=== PATIENT | female | born 2000 | race Caucasian/White ===

== ENCOUNTER 2021-08-29 18:21 | Observation (INO) | payer BC, SELFPAY ==
--- NOTE | ~2021-08-29 | CT_ITS ---
EXAMINATION: CT abdomen pelvis wo con DATE: 08/29/2021 23:52 INDICATION: Abnormal liver function tests TECHNIQUE: Computed tomography (CT) of the abdomen and pelvis was performed without intravenous contr ast. The dose-length product was 306.26 mGy-cm. Automated exposure control and iterative reconstructi on technique were employed. COMPARISON: None. FINDINGS: Lung bases are unremarkable. Heart size normal. No significant pleural or pericardial effus ion. No significant vascular abnormality. No lymphadenopathy. Small amount of free fluid in the pelvi s, likely physiologic. The liver, spleen, pancreas, adrenal glands and kidneys are unremarkable. Gallbladder is present. Non obstructive bowel gas pattern. No free air. Gallbladder is present. IMPRESSION: 1. No acute abdominal abnormality. No findings to account for abnormal liver function tests. Reviewed, dictated and finalized at location A. D TECHNICIAN IMPRESSION: 1. No acute abdominal abnormality. No findings to account for abnormal liver fu nction tests.
[2021-08-29 18:43] VITALS: BP 114/64; PULSE 139; RESP 15; TEMP 37.5; O2SAT 100
[2021-08-29 18:54] LABS: Basophils Percent Auto 0.6 % (0.2-1.2); Hematocrit 42.1 % (37.0-47.0); Hemoglobin 14.7 g/dL (12.0-15.0); Immature Granulocyte Absolute 0.02 K/mm3 (0.00-0.031); Immature Granulocyte Percent A 0.3 % (0-0.5); Lymphocytes Absolute Auto 1.69 K/mm3 (0.9-3.2); Lymphocytes Percent Auto 27.4 % (18.3-44.2); Mean Corpuscular HGB Conc 34.9 g/dl (32-36); Mean Corpuscular Hemoglobin 30.1 pg (26-34); Mean Corpuscular Volume 86.1 fl (80-100); Mean Platelet Volume 9.9 fl (7.4-10.4); Monocytes Absolute Auto 0.5 K/mm3 (0.1-0.6); Monocytes Percent Auto 8.3 % (2.6-8.5); Neutrophils Absolute Auto 3.9 K/mm3 (1.3-6.7); Neutrophils Percent Auto 63.4 % (45.5-73.1); Platelet Count Result 197 k/mm3 (150-375); Red Blood Count 4.89 M/mm3 (4.2-5.4); Red Cell Distribution Width 12.9 % (11.5-14.5); White Blood Count 6.2 K/mm3 (4.5-10.0)
[2021-08-29 19:06] LABS: Alanine Aminotransferase 87 U/L (4-35); Albumin Level 4.5 g/dL (3.5-5.1); Alkaline Phosphatase 151 U/L (38-126); Anion Gap 10 mmol/L (8-16); Aspartate Amino Transferase 130 U/L (14-36); Bilirubin,Total 1.2 mg/dL (0.2-1.3); Blood Urea Nitrogen 12 mg/dL (7-17); Calcium 9.1 mg/dL (8.4-10.2); Carbon Dioxide 26 mmol/L (22-30); Chloride 99 mmol/L (98-107); Estimated CRCL calculation 88 ml/min; Estimated Glomerular Filt Rate > 60; Glucose 125 mg/dL (65-110); Lipase 109 U/L (23-300); Potassium 3.8 mmol/L (3.4-5.0); Sodium 135 mmol/L (137-145)
[2021-08-29 19:10] LABS: Add Urine Microscopic? YES; Appearance Urine Clear (Clear); Bilirubin Urine Negative (Negative); Blood Urine Negative (Negative); Color Urine Amber (Yellow); Glucose Urine UA Negative (Negative); Ketones Urine Negative (Negative); Leukocyte Esterase Ur Negative LEU/UL (Negative); Mucus Urine Rare /lpf; Nitrate Urine Negative (Negative); Protein Urine 2+ mg/dL (Negative); RBC Urine 0-2 /hpf (0-2); Specific Grav Ur 1.024 (1.001-1.035); Squamous Epithelial Cell Urine Occasional /hpf (Few); WBC Urine 0-3 /hpf
[2021-08-29 19:41] VITALS: BP 118/70; PULSE 127; RESP 18; TEMP 38.6; O2SAT 100
[2021-08-29 20:08] VITALS: BP 112/70; PULSE 117
[2021-08-29 20:09] VITALS: BP 112/78; PULSE 121
[2021-08-29 20:11] VITALS: BP 108/76; PULSE 135
[2021-08-29] MEDS: LACTATED RINGERS 1,000 ML 999 ML IV CONT (21:40)
[2021-08-29] MEDS: ONDANSETRON INJ 4 MG/2 ML VIAL IV PUSH (21:42)
--- NOTE | 2021-08-29 21:48 | ED.NAVMDI ---
HPI - Nausea/Vomiting/Diarrhea General Chief complaint: Nausea/Vomiting/Diarrhea Stated complaint: Lethergy, Vomiting, Fever Time Seen by Provider: 08/29/21 20:10 Source: patient Mode of arrival: ambulatory Limitations: no limitations History of Present Illness HPI Narrative: 21-year-old female Usually healthy Here for nausea and vomiting Patient complains of a 2-day history of essentially unchecked nausea and vomiting, has not been able to keep anything down, even the Gatorade that she is sipping here in the ED is coming right back up She has had a low-grade fever at home She does not have abdominal pain and she does not have diarrhea She denies pain or burning with urination and no hematuria She is very tired and fatigued She does not believe that she would be Related Data Home Medications Medication Instructions Recorded Confirmed norgestimate-ethinyl estradiol tablet 08/29/21 Allergies Allergy/AdvReac Type Severity Reaction Status Date / Time No Known Allergies Allergy Verified 08/29/21 18:42 Review of Systems Review of Systems: All systems reviewed & are unremarkable except as noted in HPI and below Constitutional: Constitutional: Reports no additional constitutional complaints, Denies chills, Reports fatigue, Reports fever(s), Denies headache(s) and Reports weakness Eyes: Eyes: Reports no additional eye complaints and Denies change in vision ENT: Denies headache(s) and Denies sore throat Cardiovascular: Cardiovascular: Denies chest pain and Denies dyspnea Respiratory: Respiratory: Denies cough and Denies dyspnea Gastrointestinal: Gastrointestinal: Denies abdominal pain, Denies bloating, Denies constipation, Denies diarrhea and Reports vomiting Genitourinary: Genitourinary: Denies urinary frequency and Denies dysuria Musculoskeletal: Musculoskeletal: Reports myalgias, Denies deformity, Denies arthralgias, Denies joint swelling and Denies numbness Integumentary/Breasts: Skin/Breast: Denies rash and Denies wounds Neurologic: Denies headache(s), Denies focal weakness and Denies numbness Psychiatric: Psychiatric: Reports no additional psychiatric complaints Endocrine: Endocrine: Reports no additional endocrine complaints Hematologic/Lymphatic: Hematologic/Lymphatic: Reports no additional hematologic/lymphatic complaints Allergic/Immunologic: Allergic/Immunologic: Reports no additional allergic/immunologic complaints Exam Const: General: cooperative, healthy appearing, no acute distress and alert Orientation/consciousness: patient oriented x3 (alert) [facility]: Head: normal to inspection, normocephalic and atraumatic Ears: external ears normal General nose exam: no epistaxis Mouth: Yes Normal oral and palatal mucosa present and Yes moist mucous membranes Eyes: Conjunctivae: conjunctivae normal EOM: EOMs intact bilaterally Neck: Neck: supple and no JVD Resp: Effort & Inspection: normal respiratory effort and not labored Auscultation: clear to auscultation bilaterally and other (BS =) Cardio: Rate: regular rate and tachycardic Rhythm: regular rhythm Heart sounds: no murmurs GI: GI Palp: Yes Soft to palpation, No Tenderness to palpation present (GI), No Guarding due to palpation present (GI) and No Rebound tenderness present : Other: Mild right CVA tenderness Skin: General skin exam: normal color and no rashes or lesions noted Neuro: General: patient oriented x3 (alert) and moves all extremities Speech: normal speech Extrem: General: normal to inspection and no pedal edema Psych: Affect: normal affect Course Course Emergency Course: Reviewed results with patient and family and discussed with hospitalist for obs Vital Signs Vital signs: Vital Signs Temperature 37.5 C 08/29/21 18:43 Pulse Rate 139 H 08/29/21 18:43 Respiratory Rate 15 08/29/21 18:43 Blood Pressure 114/64 08/29/21 18:43 Pulse Oximetry 100 08/29/21 18:43 Temperature 3
[2021-08-29 22:24] LABS: Monoscreen Positive (Negative); Positive Monotest Control Positive (Positive)
[2021-08-29 22:25] LABS: Negative Monotest Control Negative (Negative)
[2021-08-29 22:38] VITALS: BP 119/61; PULSE 108; RESP 18; TEMP 37.4; O2SAT 100
--- NOTE | 2021-08-29 23:34 | PM.IMHP ---
H&P: HPI History of Present Illness Date/Time: 08/29/21 23:34 Chief Complaint: Nausea and vomiting Narrative: This is a 21-year-old female with known significant past medical history presented to the emergency room due to nausea, vomiting for 3 days unable to keep anything down, denies any chills or rigors and had a fever just before coming to the emergency room, denies any sore throat or lymphadenopathies, no abdominal pain, no cough, no sputum production ,no abdominal pain, no diarrhea. Preliminary workup was significant for a positive Monospot test. A CT of abdomen and pelvis showed no acute abnormality chemistry panel was significant for slightly elevated liver enzymes and urinalysis with 2+ protein. Decision was made to admit the patient for further management ,evaluation and treatment. Review of Systems Review of Systems: Nausea ,vomiting, fever. Constitutional: Constitutional: Denies chills, Reports fever(s), Denies lethargy and Denies malaise Eyes: Eyes: Denies change in vision ENT: Denies dysphagia, Denies dizziness, Denies nasal congestion, Denies nasal discharge, Denies nasal obstruction, Denies neck pain, Denies odynophagia and Denies sore throat Cardiovascular: Cardiovascular: Denies chest pain, Denies chest pain with activity, Denies lightheadedness, Denies radiating jaw, neck or arm pain, Denies palpitations, Denies dyspnea on exertion and Denies orthopnea Respiratory: Respiratory: Denies change in phlegm color, Denies chest congestion, Denies cough, Denies excessive phlegm production, Denies dyspnea and Denies wheezing Gastrointestinal: Gastrointestinal: Denies abdominal pain, Denies dyspepsia, Denies heartburn, Denies diarrhea, Reports nausea and Reports vomiting Genitourinary: Genitourinary: Denies dysuria Musculoskeletal: Musculoskeletal: Denies arthralgias, Denies joint swelling, Denies neck pain and Denies stiffness Integumentary/Breasts: Skin/Breast: Denies rash Neurologic: Denies dizziness, Denies focal weakness and Denies Sensory deficit (Neuro) Psychiatric: Psychiatric: Reports no additional psychiatric complaints and Reports as per HPI Endocrine: Endocrine: Reports no additional endocrine complaints and Reports as per HPI Hematologic/Lymphatic: Hematologic/Lymphatic: Reports no additional hematologic/lymphatic complaints and Reports as per HPI Allergic/Immunologic: Allergic/Immunologic: Reports no additional allergic/immunologic complaints and Reports as per [facility] Social History Social History Smoking status: Never smoker Alcohol intake: current Drinks per week: 1 Substance use: never Spiritual care concerns: No Meds Home Medications and Allergies Home Medications Medication Instructions Recorded Confirmed Type norgestimate-ethinyl estradiol tablet 08/29/21 History ibuprofen 800 mg PO TID 08/30/21 08/30/21 History Allergies Allergy/AdvReac Type Severity Reaction Status Date / Time No Known Allergies Allergy Verified 08/29/21 18:42 Vital Signs Vital Signs - 24 hr 08/29/21 18:43 08/29/21 19:41 08/29/21 20:08 Temperature 99.5 F 101.4 F H Pulse Rate 139 H 127 H 117 H Respiratory Rate 15 18 Blood Pressure 114/64 118/70 112/70 Pulse Oximetry 100 100 08/29/21 20:09 08/29/21 20:11 08/29/21 22:38 Temperature 99.3 F Pulse Rate 121 H 135 H 108 H Respiratory Rate 18 Blood Pressure 112/78 108/76 119/61 Pulse Oximetry 100 Exam Narrative: Patient is sitting in [facility] Const: General: cooperative, comfortable, no acute distress, well developed, alert, awake and other (Well-appearing) Nutritional Appearance: average body habitus Orientation/consciousness: patient oriented x3 HENMT: Head: normal to inspection, normocephalic and atraumatic Ears: hearing grossly normal bilaterally General nose exam: Normal external nose present Face and sinus: normal facial exam Mouth: Yes Normal oral and palatal
[2021-08-30] VITALS (8 sets, daily range): BP systolic 104–120; BP diastolic 56–72; PULSE 89–111; RESP 16–22; TEMP 36.6–38.2; O2SAT 98–100; BMI 23.6
[2021-08-30] MEDS: LACTATED RINGERS 1,000 ML 150 ML IV CONT ×3 (02:24→17:18)
[2021-08-30] MEDS: FAMOTIDINE 20 MG/2 ML VIAL IV PUSH ×2 (08:12→20:11)
--- NOTE | 2021-08-30 09:42 | PM.IMPN ---
Progress Note: A&P Assessment and Plan (1) Mononucleosis: Code(s): B27.90 - Infectious mononucleosis, unspecified without complication Status: Acute Assessment and Plan: Supportive care Regular diet IV fluids CT of abdomen and pelvis--> no acute abnormality (2) Intractable vomiting: Code(s): R11.10 - Vomiting, unspecified Status: Acute Assessment and Plan: Improving Supportive care CT of abdomen and pelvis no acute abnormalities (3) Abnormal liver enzymes: Code(s): R74.8 - Abnormal levels of other serum enzymes Status: Acute Assessment and Plan: Likely secondary to above Repeat labs in a.m. Subjective Date/time seen: 08/30/21 09:42 Interval history: pt seen this a.m.; labs, vs, diagnostic tests reviewed; pt is afebrile this a.m.; reports generalized weakness Review of Systems Review of Systems: All systems reviewed & are unremarkable except as noted in HPI and below Exam Const: General: no acute distress, alert and awake Orientation/consciousness: patient oriented x3 HENMT: Head: normocephalic and atraumatic Ears: hearing grossly normal bilaterally and external ears normal Face and sinus: face symmetric Mouth: Yes Normal oral and palatal mucosa present Eyes: EOM: EOMs intact bilaterally Neck: Neck: full ROM, trachea midline and no JVD Chest: Chest palpation & inspection: normal inspection of the chest Resp: Effort & Inspection: normal respiratory effort Auscultation: clear to auscultation bilaterally Cardio: Jugular venous distension: no JVD Rate: regular rate Rhythm: regular rhythm Heart sounds: S1 normal heart sound present and S2 normal heart sound present GI: Inspection: normal to inspection GI Palp: Yes Soft to palpation Percussion: Yes normal to percussion Auscultation: normal bowel sounds : General: Yes no CVA tenderness Skin: General skin exam: other (clammy) Rashes: no rashes Neuro: General: patient oriented x3 and CN's II-XI intact bilaterally Speech: normal speech Extrem: General: full ROM and no clubbing, cyanosis or edema Psych: Appearance: grossly normal Affect: normal affect Judgement: Good judgement present (Psych) Objective Data Vital Signs Vital Signs: Vital Signs - 24 hr 08/29/21 18:43 08/29/21 19:41 08/29/21 20:08 Temperature 37.5 C 38.6 C H Pulse Rate 139 H 127 H 117 H Respiratory Rate 15 18 Blood Pressure 114/64 118/70 112/70 Pulse Oximetry 100 100 08/29/21 20:09 08/29/21 20:11 08/29/21 22:38 Temperature 37.4 C Pulse Rate 121 H 135 H 108 H Respiratory Rate 18 Blood Pressure 112/78 108/76 119/61 Pulse Oximetry 100 08/30/21 00:15 08/30/21 06:37 Temperature 36.6 C Pulse Rate 90 111 H Respiratory Rate 22 H 18 Blood Pressure 120/72 104/56 L Pulse Oximetry 98 98 Intake/Output Intake/Output: Intake & Output 08/27/21 08/28/21 08/29/21 08/30/21 23:59 23:59 23:59 23:59 Intake Total 1000 1050 Output Total 400 Balance 1000 650 Meds/Results Medications: Active Medications Generic Name Dose Route Start Last Admin Trade Name Freq PRN Reason Stop Dose Admin Acetaminophen 650 mg 08/29/21 22:35 Acetaminophen 325 Mg Tablet PO Q4H PRN Mild Pain (1-3) or Fever Famotidine 20 mg 08/30/21 09:00 08/30/21 08:12 Famotidine 20 Mg/2 Ml Vial IV PUSH 20 mg Q12HR JCAKELINE Administration Lactated Ringer's 1,000 mls @ 150 mls/hr 08/29/21 22:35 08/30/21 08:12 Lr - Lactated Ringers Iv IV CONT 150 mls/hr .[id number] JACKELINE Administration Ondansetron HCl 4 mg 08/29/21 22:35 Ondansetron Inj 4 Mg/2 Ml Vial IV PUSH Q4H PRN Nausea Radiology Results: ITS Impressions Abdomen/Pelvis CT 08/29/21 23:53 IMPRESSION: 1. No acute abdominal abnormality. No findings to account for abnormal liver function tests. Labs Labs: Laboratory Results - last 24 hr 08/29/21 08/29/21 08/29/21 18:47 18:47 18:51 WBC 6.2 RBC 4.89 Hg
[2021-08-30] MEDS: ONDANSETRON INJ 4 MG/2 ML VIAL IV PUSH (17:20)
[2021-08-30] MEDS: ACETAMINOPHEN 325 MG TABLET 650 MG PO (17:20)
[2021-08-31] MEDS: LACTATED RINGERS 1,000 ML 150 ML IV CONT ×2 (00:16→06:30)
[2021-08-31 06:00] VITALS: BP 115/71; PULSE 100; RESP 18; TEMP 38.1; O2SAT 97
[2021-08-31 06:31] VITALS: TEMP 38.1
[2021-08-31] MEDS: ACETAMINOPHEN 325 MG TABLET 650 MG PO ×2 (06:31→13:48)
[2021-08-31 07:09] LABS: Hematocrit 35.9 % (37.0-47.0); Hemoglobin 12.1 g/dL (12.0-15.0); Mean Corpuscular HGB Conc 33.7 g/dl (32-36); Mean Corpuscular Hemoglobin 28.9 pg (26-34); Mean Corpuscular Volume 85.9 fl (80-100); Mean Platelet Volume 10.2 fl (7.4-10.4); Platelet Count Result 142 k/mm3 (150-375); Red Blood Count 4.18 M/mm3 (4.2-5.4); Red Cell Distribution Width 13.1 % (11.5-14.5)
[2021-08-31 07:31] VITALS: TEMP 36.8
[2021-08-31 07:35] LABS: Alanine Aminotransferase 60 U/L (4-35); Albumin Level 3.2 g/dL (3.5-5.1); Alkaline Phosphatase 124 U/L (38-126); Anion Gap 5 mmol/L (8-16); Aspartate Amino Transferase 52 U/L (14-36); Bilirubin,Total 2.3 mg/dL (0.2-1.3); Blood Urea Nitrogen 5 mg/dL (7-17); Calcium 8.5 mg/dL (8.4-10.2); Carbon Dioxide 29 mmol/L (22-30); Chloride 102 mmol/L (98-107); Estimated CRCL calculation 99 ml/min; Estimated Glomerular Filt Rate > 60; Glucose 106 mg/dL (65-110); Sodium 136 mmol/L (137-145)
[2021-08-31] MEDS: FAMOTIDINE 20 MG/2 ML VIAL IV PUSH (08:35)
[2021-08-31] MEDS: ONDANSETRON INJ 4 MG/2 ML VIAL IV PUSH (08:35)
[2021-08-31 13:48] VITALS: TEMP 38.1
[2021-08-31 14:00] VITALS: BP 112/64; PULSE 108; RESP 16; TEMP 38.1; O2SAT 100
[2021-08-31 14:48] VITALS: TEMP 37.3; TEMP 37.7
--- NOTE | 2021-09-01 16:45 | PM.DS ---
DS: Admitting Diagnosis Discharge Date 08/31/21 Admitting Diagnosis Mononucleosis DS: Discharge Diagnosis Discharge Diagnosis (1) Mononucleosis: Code(s): B27.90 - Infectious mononucleosis, unspecified without complication Status: Acute Assessment and Plan: Presented with nausea and vomiting. Positive mononucleosis screening on 08/29/2021. CT abdomen/pelvis showed normal spleen and liver. Supportive care provided including IV fluid hydration. She did have low-grade fevers that were responsive to Tylenol. Continue acetaminophen as needed for fever and body aches. Adequate oral intake encouraged. Education provided regarding precautions to avoid contact sports or physical activity. Follow-up with primary care provider in 1 week for further monitoring. (2) Intractable vomiting: Code(s): R11.10 - Vomiting, unspecified Status: Acute Assessment and Plan: Resolved. Secondary to viral illness. She was able to tolerate her diet. Short course of antiemetics provided on discharge. (3) Abnormal liver enzymes: Code(s): R74.8 - Abnormal levels of other serum enzymes Status: Acute Assessment and Plan: LFTs elevated on presentation with mild improvement. Total bilirubin elevated up to 2.3. Likely related to acute viral illness. Repeat hepatic panel in 1 week and follow-up with PCP. DS: Summary Hospital Course Hospital Course: Date of admission: 08/29/2021 Date of discharge: 08/31/2021 Amber Flores is a healthy 21 year old female who presented to the emergency department on 08/29/2021 with complaints of nausea and vomiting, unable to keep down any food or liquids. She also endorsed low grade fevers. Upon presentation to the ED, she was tachycardic and febrile up to 101.4 with additional vital signs stable. CBC and BMP unremarkable. LFTs elevated. CT a/p with no acute abdominal abnormalities. She was admitted to the hospitalist service. Please see above for further details. Supportive care provided for mono. Nausea and vomiting resolved and she was able to tolerate PO intake. She was feeling slightly improved and requested discharge home. She felt comfortable to manage her symptoms at home. Expect low grade fevers to persist, and instructed her to take tylenol as needed for fever and seek medical care if fever persists despite antipyretics. Discussed precautions as well as worrisome signs and symptoms for which to return and she was educated on her medications. She was discharged in hemodynamically stable condition on 08/31/2021. Status at Discharge Functional status at discharge: independent ambulation Overall status at discharge: patient is progressing back to baseline Time Spent with Patient Time attestation: Total time spent providing and/or coordinating discharge services: 45 minutes v Time spent: Greater than 30 minutes Exam Narrative: Ms. Flores is a well-nourished, well-appearing 21-year-old female who is sitting in a chair by the bedside. She appears comfortable and is in NARD. Neuro: awake, alert and oriented x4, speech clear, no focal neuro deficits noted HEENMT: normocephalic, atraumatic, EOMI, sclerae anicteric, moist oral mucosa, tongue midline, nares patent Respiratory: clear to auscultation bilaterally, nonlabored breathing Cardio: regular rate, regular rhythm with S1-S2 Abdomen: nondistended, normoactive bowel sounds, soft, nontender to palpation, nonpalpable spleen Extremities: no edema, erythema, or tenderness to palpation Skin: no rashes or lesions, warm and dry Psych: appropriate mood and affect, judgment and insight intact DS: Data Imaging Radiologist's impression: ITS Impressions Abdomen/Pelvis CT 08/29/21 23:53 IMPRESSION: 1. No acute abdominal abnormality. No findings to account for abnormal liver function tests. Discharge Plan Discharge Attending physician on discharge: Willem Johnson Consulting providers: Thomas
== END 2021-08-31 15:53 | disposition home or self-care (01) ==
LOC: ANHED 22:40 → ANH3MEDSUR 23:41
PROVIDERS: Nurse Practitioner Adult Health; Admitting Provider Internal Medicine; Emergency Provider Emergency Medicine; Visit Provider Physician Assistant
DX: B27.90 Infectious mononucleosis, unspecified without complication (principal); R11.2 Nausea with vomiting, unspecified; R74.8 Abnormal levels of other serum enzymes
CPT/HCPCS: 36415; 74176; 80053; 81001; 81025; 83690; 85025; 85027; 86308; 96361; 96374; 96375; 96376; 99285; A9270; G0378; J2405; J7120